=== PATIENT | female | born 1930 | race Caucasian/White ===

== ENCOUNTER 2016-10-01 13:35 | Emergency (ER) | payer MEDICARE, BC ==
[~2016-10-01 13:35] MED LIST: ASPIRIN EC81 MG PO; CALCIUM CITRAT1 EAC1 PO; CENTRUM SILVER1 EAC1 PO; COMPAZINE10 MG PO; CRANBERRY EXTRAC1 GM PO; KLOR-CON M2020 ME1 PO; LEVAQUIN DPS500 MG PO; MIRALAX PACKET17 GM PO; MULTIVITAMINS1 EAC1 PO; NORCO 5-325 TA1 EACH PO; PEPCID DPS20 MG PO; SENOKOT DPS8.6 MG PO; VITAMIN C1000 MG PO; VITAMIN D31000 UNIT PO; ZOFRAN8 MG PO
--- NOTE | 2016-10-08 14:34 | ER ---
ADMIT: 10/01/2016 RM/LOC: ER [facility] MR#: [id number] [id number] MARTIN MERCADO [address] [place] [address] Emergency Room Report SEX: F AGE: 86 : 1930 DATE: 10/01/2016 ADDENDUM: This patient is brought into the ER by her daughter because she noticed 2 stools today that were very foul smelling. She recently had C. diff and her daughter thinks it smelled exactly like when she had C. diff in the past. They did get a sample which we took to our laboratory, but it was a formed stool and we were informed that we could not do a C. diff screen on formed stool. On physical exam, her abdomen is soft. She is nontender to palpation and she is alert. Denies any complaints. I spoke at length with her daughter about the concerns of C. diff since she has had in the past. I then spoke with Karen Beaver who sees this patient in the office and Karen Beaver spoke with the lab and it was determined that her stool could not be sent, we would need to get another sample. Her CBC was normal except for hemoglobin being 10 which is within normal limits for her and her CMP was normal. We did discharge her with an outpatient stool culture for C. diff and they are to follow up with Karen Beaver for the results. DIAGNOSIS: Loose stool x2, please see my T-sheet. AMANDA Buck / Kash Person MD / rosie JOB #: [id number] CC: Kash Person MD, Attending Physician Karen Beaver APRN, Family Physician
== END 2016-10-01 16:30 | disposition home or self-care (01) ==
LOC: ER 13:35
DX: R19.7 Diarrhea, unspecified (principal); Z85.51 Personal history of malignant neoplasm of bladder